=== PATIENT | female | born 1985 | race American Indian/Alaskan Native ===

== ENCOUNTER 2018-11-12 09:16 | Emergency (ER) | payer OTHER ==
[2018-11-12 09:25] VITALS: BP 116/73
[2018-11-12] MEDS ORDERED: IBUPROFEN PO ONE (10:32)
--- NOTE | 2018-11-12 11:18 | XRay Report ---
RIGHT TIBIA/FIBULA: History: Pain and swelling AP and lateral views of the right tibia/fibula demonstrate normal mineralization and contours for this patient's age. No destructive changes are noted and the adjacent soft tissues are normal. IMPRESSION: Unremarkable right tibia/fibula.
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
== END 2018-11-12 11:51 | disposition home or self-care (01) ==
LOC: ED 09:16
DX: S39.012A Strain of muscle, fascia and tendon of lower back, initial encounter (principal); S80.12XA Contusion of left lower leg, initial encounter; V09.9XXA Pedestrian injured in unspecified transport accident, initial encounter; Y93.89 Activity, other specified; Y92.488 Other paved roadways as the place of occurrence of the external cause; Y99.8 Other external cause status
CPT/HCPCS: 99283

== ENCOUNTER 2019-01-29 01:57 | Emergency (ER) | payer SELFPAY ==
[2019-01-29 03:04] LABS: Basophils # (Auto) 0.1 K/mm3 (0.0-0.1); Basophils % (Auto) 0.9 % (0.0-1.8); Eosinophils # (Auto) 0.2 K/mm3 (0.0-0.4); Eosinophils % (Auto) 2.1 % (0.0-4.3); Hematocrit 40.7 % (30.3-42.9); Hemoglobin 13.5 gm/dl (10.1-14.3); Lymphocytes % (Auto) 26.9 % (13.4-35.0); Mean Corpuscular HGB Conc 33 % (30-34); Mean Corpuscular Volume 90 fl (79-97); Monocytes # (Auto) 0.4 K/mm3 (0.0-0.8); Monocytes % (Auto) 5.8 % (0.0-7.3); Platelet Count 222 K/mm3 (140-440); Red Blood Count 4.53 M/mm3 (3.65-5.03)
[2019-01-29 03:27] LABS: Alanine Aminotransferase 10 units/L (7-56); Albumin 4.1 g/dL (3.9-5); BUN/Creatinine Ratio 17; Blood Urea Nitrogen 12 mg/dL (7-17); Calcium 9.5 mg/dL (8.4-10.2); Hemolysis Index 17
[2019-01-29 03:40] LABS: Bilirubin,Urine NEG (Negative); Blood,Urine NEG (Negative); Color,Urine Yellow (Yellow); Hyaline Casts,Urine 3 /LPF; Mucus,Urine 3+ /HPF; Protein,Urine <15 mg/dL mg/dL (Negative); Urobilinogen,Urine < 2.0 mg/dL (<2.0)
[2019-01-29 03:43] LABS: HCG Qualitative,Urine Negative (Negative)
--- NOTE | 2019-01-29 04:07 | Cat Scan Report ---
CT HEAD WITHOUT CONTRAST INDICATION: sycope and tingling to legs , syncopal episode TECHNIQUE: All CT scans at this location are performed using CT dose reduction for ALARA by means of automated exposure control. COMPARISON: None available. FINDINGS: BRAIN: No hemorrhage or mass effect are seen. No evidence of acute infarction is noted. ORBITS: Normal as visualized. SOFT TISSUES OF HEAD: Normal. CALVARIUM: Normal. VISUALIZED PARANASAL SINUSES AND MASTOID AIR CELLS: Clear. ADDITIONAL FINDINGS: None. IMPRESSION: No acute intracranial abnormality. Signer Name: Donovan Ho MD Signed: 01/29/2019 4:03 AM Workstation Name: [id number]
[2019-01-29] MEDS ORDERED: NACL 0.9% 1000 ML 1,000 ML IV ONE ×2 (07:15→13:56)
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
[2019-01-29] MEDS ORDERED: TORADOL IV ONE (08:56)
[2019-01-29] MEDS ORDERED: ZOFRAN IV ONE ×2 (08:56→13:17)
[2019-01-29] MEDS ORDERED: MORPHINE IV ONE (11:08)
--- NOTE | 2019-01-29 11:37 | Magnetic Resonance Report ---
MRI LUMBAR SPINE WITHOUT CONTRAST INDICATION / CLINICAL INFORMATION: Bilateral leg weakness and numbness. TECHNIQUE: Multisequence, multiplanar images of the lumbar spine were obtained. COMPARISON: None available. FINDINGS: ALIGNMENT: Normal lumbar lordosis without significant scoliosis. VERTEBRAE:Normal marrow signal and vertebral body height for age. VISUALIZED SPINAL CORD: No significant abnormality. The conus terminates at the level of L2. [id number] ANALYSIS: L1-2: No significant abnormality. L2-3: No significant abnormality. L3-4: No significant abnormality. L4-5: No significant abnormality. L5-S1: No significant abnormality. PARASPINAL SOFT TISSUES: No significant abnormality. ADDITIONAL FINDINGS: None. IMPRESSION: Normal MRI of the lumbar spine. Signer Name: Fredy Dixon Jr, MD Signed: 01/29/2019 11:33 AM Workstation Name: [id number]
--- NOTE | 2019-01-29 13:41 | Magnetic Resonance Report ---
MRI THORACIC SPINE WITHOUT CONTRAST INDICATION / CLINICAL INFORMATION: MAIN: b/l leg weakness and numbness PATIENT MOTION DUE TO PAIN. TECHNIQUE: Multisequence, multiplanar images of the thoracic spine were obtained. COMPARISON: None available. FINDINGS: ALIGNMENT: There appears be mild curvature of the lower thoracic spine, convex toward the right. Poole quan, there is no significant spondylolisthesis. VERTEBRAE:Normal marrow signal and vertebral body height for age. VISUALIZED SPINAL CORD: The motion degrades image quality. However, the thoracic spinal cord appears to demonstrate appropriate morphology and signal intensity at. INTERVERTEBRAL DISCS: The intervertebral disc spaces are fairly well-maintained without evidence of d isc protrusion or significant spinal stenosis. DEGENERATIVE FINDINGS: The neural foramen appear patent to. There is no evidence of recent compressio n or fracture. No epidural collections are identified. PARASPINAL SOFT TISSUES: No significant abnormality. ADDITIONAL FINDINGS: None. IMPRESSION: 1. The MRI of the thoracic spine is essentially unremarkable without disc protrusion or significant s tenosis at. Signer Name: Flo Luna MD Signed: 01/29/2019 1:37 PM Workstation Name: [id number]
[2019-01-29] MEDS ORDERED: BENADRYL IV ONE (13:56)
[2019-01-29] MEDS ORDERED: REGLAN IV ONE (13:56)
[2019-01-29 17:45] VITALS: BP 114/68
== END 2019-01-29 17:55 | disposition other institution (70) ==
LOC: ED 01:57
DX: R53.1 Weakness (principal); R55 Syncope and collapse; G89.29 Other chronic pain; Z79.899 Other long term (current) drug therapy
CPT/HCPCS: 36415; 70450; 72146; 72148; 80053; 81001; 81025; 85025; 93005; 93010; 96374; 96375; 96376; 99285; J1200; J1885; J2270; J2405; J2765; J7030